=== PATIENT | female | born 2000 | race Two or more races ===

== ENCOUNTER 2023-07-11 18:34 | Emergency (ER) | payer OTHER ==
[~2023-07-11] VITALS: Ht 157.5 cm; Wt 80.3 kg
[2023-07-11] MEDS ORDERED: POLYMYXIN B/TMP10 ML OP (20:06)
== END 2023-07-11 21:49 | disposition home or self-care (01) ==
LOC: ER 18:34 → EDBD 18:51 → ER 21:49
DX: H10.89 Other conjunctivitis (principal); Z87.09 Personal history of other diseases of the respiratory system